=== PATIENT | female | born 1980 | race Caucasian/White ===

== ENCOUNTER 2019-09-15 23:24 | Emergency (ER) | payer SELFPAY ==
[~2019-09-15] VITALS: Ht 165.1 cm; Wt 61.2 kg
[2019-09-15 23:55] LABS: Influenza A Negative (NEGATIVE); Influenza B Positive (NEGATIVE)
[2019-09-16] MEDS ORDERED: Tamiflu75 MG PO (00:51)
[2019-09-17] MEDS ORDERED: ONDA4ODT MM (20:21)
== END 2019-09-16 01:28 | disposition home or self-care (01) ==
LOC: ER 23:24
PROVIDERS: Emergency Medicine
DX: J10.1 Influenza due to other identified influenza virus with other respiratory manifestations (principal)
CPT/HCPCS: 87804; 99283

== ENCOUNTER 2019-09-17 16:55 | Emergency (ER) | payer SELFPAY ==
[~2019-09-17] VITALS: Ht 165.1 cm; Wt 61.2 kg
[~2019-09-17 16:55] MED LIST: Tamiflu75 MG PO
[2019-09-17 18:49] LABS: BASOPHILS PERCENT AUTO 0 % (0-2); EOSINOPHILS PERCENT AUTO 0 % (0-6); Hematocrit 43.2 % (33.0-51.0); Hemoglobin 14.2 g/dL (11.5-16.0); Mean Corpuscular HGB Conc 32.9 g/dL (31.5-36.5); Mean Corpuscular Volume 88 fL (80-100); Mean Platelet Volume 10.8 fL (9.1-12.4); Platelet Count 107 K/mm3 (150-400); RDW Coefficient Variation 12.4 % (11.7-14.2); RDW Standard Deviation 40.3 fL (35.1-46.3); White Blood Cell Count 2.96 K/mm3 (4.00-11.30)
[2019-09-17 18:55] LABS: IMMATURE GRAN ABSOLUTE AUTO 0.01 K/mm3 (0.00-0.10); IMMATURE GRAN PERCENT AUTO 0 % (0-1); LYMPHOCYTES ABSOLUTE AUTO 0.83 K/mm3 (0.84-5.20); LYMPHOCYTES PERCENT AUTO 28 % (21-46); MONOCYTES ABSOLUTE AUTO 0.27 K/mm3 (0.16-1.47); MONOCYTES PERCENT AUTO 9 % (4-13); NEUTROPHILS ABSOLUTE AUTO 1.85 K/mm3 (1.96-9.15); NEUTROPHILS PERCENT AUTO 63 % (41-73)
[2019-09-17 19:15] LABS: Alanine Aminotransfer (ALT/SGP 61 U/L (12-78); Albumin, Blood 3.6 g/dL (3.4-5.0); Alk Phos 57 U/L (50-136); Anion Gap 4 mmol/L (6-16); Aspartate Aminotrans (AST/SGOT 36 U/L (12-37); Bilirubin, Total 0.3 mg/dL (0.1-1.0); Blood Urea Nitrogen 11 mg/dL (8-24); Bun/Creatinine Ratio 18.7 (12.0-20.0); CO2, Blood 29 mmol/L (21-32); Chloride, Blood 106 mmol/L (98-108); Creatinine, Blood 0.59 mg/dL (0.40-1.00); Globulin, Blood 3.7 g/dL (2.2-4.0); Glomerular Filtration Rate >60 (60-); Glucose, Blood 91 mg/dL (70-99); Potassium, Blood 3.2 mmol/L (3.5-5.5); Sodium, Blood 139 mmol/L (136-145); Total Protein, Blood 7.3 g/dL (6.4-8.2)
[2019-09-17] MEDS ORDERED: ONDA4ODT MM (20:21)
== END 2019-09-17 20:29 | disposition home or self-care (01) ==
LOC: ER 16:55
PROVIDERS: Physician Assistant
DX: N92.0 Excessive and frequent menstruation with regular cycle (principal); J10.1 Influenza due to other identified influenza virus with other respiratory manifestations; F17.200 Nicotine dependence, unspecified, uncomplicated
CPT/HCPCS: 36415; 76830; 76856; 80053; 81025; 85025; 99284-25; A9270-GY

== ENCOUNTER → 2022-03-25 | Outpatient (CLI) | payer OTHER ==
[~2022-03-25] MED LIST changes: +HYDR1TAB94 PO; +ONDA4ODT MM
[2022-03-25 14:32] LABS: BASOPHILS ABSOLUTE AUTO 0.04 K/mm3 (0.00-0.23); BASOPHILS PERCENT AUTO 0 % (0-2); EOSINOPHILS ABSOLUTE AUTO 0.03 K/mm3 (0.00-0.68); EOSINOPHILS PERCENT AUTO 0 % (0-6); Hematocrit 36.6 % (33.0-51.0); Hemoglobin 12.7 g/dL (11.5-16.0); IMMATURE GRAN ABSOLUTE AUTO 0.03 K/mm3 (0.00-0.10); IMMATURE GRAN PERCENT AUTO 0 % (0-1); LYMPHOCYTES ABSOLUTE AUTO 1.23 K/mm3 (0.84-5.20); LYMPHOCYTES PERCENT AUTO 11 % (21-46); MONOCYTES ABSOLUTE AUTO 0.68 K/mm3 (0.16-1.47); MONOCYTES PERCENT AUTO 6 % (4-13); Mean Corpuscular HGB 29.1 pg (26.0-34.0); Mean Corpuscular HGB Conc 34.7 g/dL (31.5-36.5); Mean Corpuscular Volume 84 fL (80-100); Mean Platelet Volume 9.7 fL (9.1-12.4); NEUTROPHILS ABSOLUTE AUTO 8.95 K/mm3 (1.96-9.15); NEUTROPHILS PERCENT AUTO 82 % (41-73); Platelet Count 257 K/mm3 (150-400); RDW Coefficient Variation 12.2 % (11.7-14.2); RDW Standard Deviation 37.2 fL (35.1-46.3); Red Blood Cell Count 4.37 M/mm3 (3.80-5.20); White Blood Cell Count 10.96 K/mm3 (4.00-11.30)
[2022-03-25 14:41] LABS: Albumin, Blood 3.5 g/dL (3.4-5.0); Albumin/Globulin Ratio 1.1 (0.8-1.8); Bilirubin, Total 0.5 mg/dL (0.1-1.0); Bun/Creatinine Ratio 18.3 (12.0-20.0); Calcium, Blood 8.3 mg/dL (8.5-10.1); Creatinine, Blood 0.6 mg/dL (0.40-1.00); Globulin, Blood 3.1 g/dL (2.2-4.0); Potassium, Blood 3.8 mmol/L (3.5-5.5); Total Protein, Blood 6.6 g/dL (6.4-8.2)
== END | disposition home or self-care (01) ==
LOC: LAB 14:24 → LAB SHORT 14:24
PROVIDERS: Physician Assistant Surgical
DX: R10.11 Right upper quadrant pain (principal)
CPT/HCPCS: 80053; 83690; 85025

== ENCOUNTER 2022-03-26 09:54 | Observation (INO) | payer OTHER ==
[~2022-03-26] VITALS: Ht 167.6 cm; Wt 67.1 kg
[~2022-03-26 09:54] MED LIST changes: -HYDR1TAB94 PO
[2022-03-26 11:40] LABS: BASOPHILS ABSOLUTE AUTO 0.03 K/mm3 (0.00-0.23); BASOPHILS PERCENT AUTO 0 % (0-2); EOSINOPHILS ABSOLUTE AUTO 0.09 K/mm3 (0.00-0.68); EOSINOPHILS PERCENT AUTO 1 % (0-6); Hematocrit 38.4 % (33.0-51.0); IMMATURE GRAN ABSOLUTE AUTO 0.06 K/mm3 (0.00-0.10); IMMATURE GRAN PERCENT AUTO 0 % (0-1); LYMPHOCYTES ABSOLUTE AUTO 0.84 K/mm3 (0.84-5.20); LYMPHOCYTES PERCENT AUTO 6 % (21-46); MONOCYTES ABSOLUTE AUTO 1.11 K/mm3 (0.16-1.47); MONOCYTES PERCENT AUTO 8 % (4-13); Mean Corpuscular HGB 28.7 pg (26.0-34.0); Mean Corpuscular HGB Conc 33.9 g/dL (31.5-36.5); Mean Corpuscular Volume 85 fL (80-100); Mean Platelet Volume 9.9 fL (9.1-12.4); NEUTROPHILS ABSOLUTE AUTO 11.72 K/mm3 (1.96-9.15); NEUTROPHILS PERCENT AUTO 85 % (41-73); Platelet Count 210 K/mm3 (150-400); RDW Coefficient Variation 12.4 % (11.7-14.2); RDW Standard Deviation 38.2 fL (35.1-46.3); Red Blood Cell Count 4.53 M/mm3 (3.80-5.20); White Blood Cell Count 13.85 K/mm3 (4.00-11.30)
[2022-03-26 12:16] LABS: Albumin, Blood 3.2 g/dL (3.4-5.0); Bilirubin, Total 1.4 mg/dL (0.1-1.0); Bun/Creatinine Ratio 11.3 (12.0-20.0); Calcium, Blood 8.8 mg/dL (8.5-10.1); Creatinine, Blood 0.62 mg/dL (0.40-1.00); Globulin, Blood 3.3 g/dL (2.2-4.0); Potassium, Blood 4.2 mmol/L (3.5-5.5); Total Protein, Blood 6.5 g/dL (6.4-8.2)
[2022-03-26 15:05] LABS: Source, Urine Clean Catch
[2022-03-26 15:13] LABS: Appearance, Urine Hazy (Clear); Bilirubin, Urine Neg (Neg); Blood, Urine Neg (Neg); Color, Urine Yellow (P-Yellow); Glucose Qualitative, Urine Neg (Neg); Ketones, Urine Neg (Neg); Leukocyte Esterase, Urine 1+ (Neg); Nitrite, Urine Neg (Neg); Protein, Urine 1+ (Neg); Urobilinogen, Urine 2+ (Normal)
[2022-03-26 15:22] LABS: Bacteria Many /hpf; Red Blood Cells, Urine 0-2 /hpf (0-2); Squamous Epithelial Cells Mod /hpf (Few)
--- NOTE | 2022-03-26 18:01 | NUR ---
ADMISSION: REPORT RECIEVED FROM [employer], PT TO UNIT AT ABOUT 1720. PT VOIDED, UP INDEPENDENTLY. PT IS A/O, ABD IS PAINFUL, MEDICATED PER EMAR. ADMISSION HX COMPLETE. PLAN FOR NPO AT 0000 AND SURGERY TOMORROW. WILL PASS REPORT TO NOC RN.
--- NOTE | 2022-03-27 04:33 | NUR ---
SHIFT SUMMARY A/O X4- IND IN THE ROOM. PLAN FOR SURGERY THIS AM. PT REPORTS PAIN MANAGED W/ IV PAIN MEDICATION Q2H. NPO SINCE MIDNIGHT. IV REPLACED, FLUIDS RUNNING. IV ANTIBIOTICS GIVEN. VITAL SIGNS STABLE. WILL CONTINUE TO MONITOR AND REPORT TO ONCOMING RN.
--- NOTE | 2022-03-27 09:36 | NUR ---
03/27/22 0936 Luann Castillo NO PREOP ANTIBIOTICS ORDERED PER PATIENT IS ON SCHEDULED ANTIBIOTICS.
--- NOTE | 2022-03-27 12:40 | NUR ---
PT ARRIVED BACK FROM PACU AT APPROXIMATELY 1230. PT IS DROWSY BUT AWAKENS TO SAY SHE DOESNT FEEL GOOD. SHE REPORTS PAIN BUT IS DROWSY. WILL CONTINUE TO MONITOR.
--- NOTE | 2022-03-27 17:04 | NUR ---
SHIFT SUMMARY PT IS POD#0 FROM [facility] WITH DR. MARCELO. PT HAS RESTED POST-OP. PAIN MANAGED WITH NORCO. PT TOLERATED CLEAR LIQUIDS AND CRACKERS. PLAN FOR A REGULAR TRAY FOR DINNER. PT HAS BEEN ABLE TO AMBULATE INDEPENDENTLY TO THE BATHROOM POST-OP. PT IS IMPULSIVE BUT IS STABLE ON HER FEET.
--- NOTE | 2022-03-28 06:22 | NUR ---
SHIFT SUMMARY PT POD 0 LAP APURVA, SHE HAS DONE WELL OVERNIGHT, PAIN IS MUCH IMPROVED. MEDICATED X2 FOR PAIN WITH AFFECT. LAP SITES C/D/I. PT HAS AMBULATED IN HALLWAY THIS SHIFT AND IS VOIDING. TOLERATING PO INTAKE. INDEPENDENT IN THE ROOM. POSSIBLE DC TODAY. BED IN LOWEST POSITION, CALL LIGHT WITHIN REACH.
[2022-03-28] MEDS ORDERED: HYDR1TAB94 PO (11:54)
--- NOTE | 2022-03-28 14:29 | NUR ---
IVs REMOVED PRIOR TO DISCHARGE 20G IV REMOVED FROM L UPPER ARM, IV AND CATHETER INTACT AT TIME OF REMOVAL. SITE WNL. IV REMOVED FROM L WRIST PRIOR TO DISCHARGE, SEE VASCULAR ACCESS DOCUMENTATION.
--- NOTE | 2022-03-28 14:31 | NUR ---
DISCHARGE PT WAS PROVIDED WITH WRITTEN AND VERBAL DISCHARGE INSTRUCTIONS, SHE REPORTED UNDERSTANDING. PRIOR TO DISCHARGE PT WAS ABLE TO AMBULATE, VOID, TOLERATE PO, PASS FLATUS AND HAVE A BM, PAIN MANAGED ON ORAL PAIN MEDICATION. PRESCRIPTION PROVIDED FOR PAIN MEDICATION, PT EDUCATED TO FILL THE PRESCRIPTION AT HER PHARMACY. PT ASSISTED OUT IN A W/C FOR COMFORT.
== END 2022-03-28 13:05 | disposition home or self-care (01) ==
LOC: ER 09:54 → ERHOLD 09:55 → SURS 09:55 → ER 09:55 → SURS 09:58 → ERHOLD 17:11 → SURS 03-27 13:43
PROVIDERS: Physician Assistant; ADMIT Surgery
PROC: 0FT44ZZ Resection of Gallbladder, Percutaneous Endoscopic Approach (ICD-10-PCS; principal; 2022-03-27 09:00)
PROC: BF12YZZ Fluoroscopy of Gallbladder using Other Contrast (ICD-10-PCS; principal; 2022-03-27 09:00)
DX: K80.00 Calculus of gallbladder with acute cholecystitis without obstruction (principal); F17.210 Nicotine dependence, cigarettes, uncomplicated; Z88.0 Allergy status to penicillin
CPT/HCPCS: 36415; 74300; 80053; 81001; 85025; 87086; 88304; 96365; 96372; 96375; 96376; 99284-25; A9270; C1729; G0378; J0694; J1100; J1170; J1650; J1885; J2250; J2405; J2704; J2710; J2765; J3010; J7120

== ENCOUNTER → 2023-02-07 | Outpatient (CLI) | payer OTHER ==
[~2023-02-07] MED LIST changes: +HYDR1TAB94 PO
[2023-02-07 18:10] LABS: BASOPHILS ABSOLUTE AUTO 0.03 K/mm3 (0.00-0.23); BASOPHILS PERCENT AUTO 1 % (0-2); EOSINOPHILS ABSOLUTE AUTO 0.07 K/mm3 (0.00-0.68); EOSINOPHILS PERCENT AUTO 2 % (0-6); Hemoglobin 13.3 g/dL (11.5-16.0); IMMATURE GRAN PERCENT AUTO 0 % (0-1); LYMPHOCYTES PERCENT AUTO 32 % (21-46); MONOCYTES PERCENT AUTO 12 % (4-13); Mean Corpuscular HGB 29.2 pg (26.0-34.0); Mean Corpuscular HGB Conc 33.3 g/dL (31.5-36.5); Mean Corpuscular Volume 88 fL (80-100); Mean Platelet Volume 9.2 fL (9.1-12.4); NEUTROPHILS ABSOLUTE AUTO 1.85 K/mm3 (1.96-9.15); NEUTROPHILS PERCENT AUTO 54 % (41-73); Platelet Count 204 K/mm3 (150-400); RDW Coefficient Variation 12.7 % (11.7-14.2); Red Blood Cell Count 4.55 M/mm3 (3.80-5.20); White Blood Cell Count 3.45 K/mm3 (4.00-11.30)
[2023-02-07 18:20] LABS: Albumin, Blood 3.4 g/dL (3.4-5.0); Bilirubin, Total 0.3 mg/dL (0.1-1.0); Bun/Creatinine Ratio 12.1 (12.0-20.0); Calcium, Blood 8.8 mg/dL (8.5-10.1); Creatinine, Blood 0.66 mg/dL (0.40-1.00); Globulin, Blood 3.4 g/dL (2.2-4.0); Potassium, Blood 3.9 mmol/L (3.5-5.5); Total Protein, Blood 6.8 g/dL (6.4-8.2)
== END ==
LOC: LAB SHORT 18:04 → LAB 18:04
PROVIDERS: Family Medicine
DX: R60.0 Localized edema (principal)
CPT/HCPCS: 80053; 85025

== ENCOUNTER → 2023-06-15 | Outpatient (CLI) | payer OTHER ==
[~2023-06-15] MED LIST changes: +Triamcinolone A15 GM TOP
== END ==
LOC: LAB SHORT 17:47 → LAB 17:47
DX: R22.41 Localized swelling, mass and lump, right lower limb (principal)
CPT/HCPCS: 85379

== ENCOUNTER 2024-12-20 04:51 | Emergency (ER) | payer OTHER ==
[~2024-12-20] VITALS: Ht 165.1 cm; Wt 63.5 kg
[2024-12-20 05:55] LABS: Albumin, Blood 3.4 g/dL (3.4-5.0); Albumin/Globulin Ratio 0.9 (0.8-1.8); Bilirubin, Total 0.3 mg/dL (0.1-1.0); Calcium, Blood 8.5 mg/dL (8.5-10.1); Creatinine, Blood 0.58 mg/dL (0.40-1.00); Globulin, Blood 3.6 g/dL (2.2-4.0); Potassium, Blood 3.9 mmol/L (3.5-5.5)
[2024-12-20 06:09] LABS: BASOPHILS ABSOLUTE AUTO 0.02 K/mm3 (0.00-0.23); BASOPHILS PERCENT AUTO 0 % (0-2); EOSINOPHILS ABSOLUTE AUTO 0.15 K/mm3 (0.00-0.68); EOSINOPHILS PERCENT AUTO 2 % (0-6); Hematocrit 35.6 % (33.0-51.0); Hemoglobin 11.6 g/dL (11.5-16.0); IMMATURE GRAN ABSOLUTE AUTO 0.02 K/mm3 (0.00-0.10); IMMATURE GRAN PERCENT AUTO 0 % (0-1); LYMPHOCYTES ABSOLUTE AUTO 1.18 K/mm3 (0.84-5.20); LYMPHOCYTES PERCENT AUTO 18 % (21-46); MONOCYTES ABSOLUTE AUTO 0.69 K/mm3 (0.16-1.47); MONOCYTES PERCENT AUTO 11 % (4-13); Mean Corpuscular HGB 28.4 pg (26.0-34.0); Mean Corpuscular HGB Conc 32.6 g/dL (31.5-36.5); Mean Corpuscular Volume 87 fL (80-100); Mean Platelet Volume 8.8 fL (9.1-12.4); NEUTROPHILS ABSOLUTE AUTO 4.41 K/mm3 (1.96-9.15); NEUTROPHILS PERCENT AUTO 68 % (41-73); Platelet Count 186 K/mm3 (150-400); RDW Coefficient Variation 13.1 % (11.7-14.2); RDW Standard Deviation 41.4 fL (35.1-46.3); Red Blood Cell Count 4.09 M/mm3 (3.80-5.20); White Blood Cell Count 6.47 K/mm3 (4.00-11.30)
[2024-12-20] MEDS ORDERED: LIDO700A20 TOP (06:19)
[2024-12-20] MEDS ORDERED: Lidocaine 4% 1 Patch TOP ONE (06:20)
[2024-12-20] MEDS ORDERED: Ketorolac Tromethamine 30mg Vial IV ONE (06:20)
[2024-12-20 06:30] VITALS: BP 126/74
== END 2024-12-20 06:35 | disposition home or self-care (01) ==
LOC: ER 04:51
PROVIDERS: Emergency Medicine
DX: M43.6 Torticollis (principal); Z87.891 Personal history of nicotine dependence
CPT/HCPCS: 70491; 80053; 85025; 96374-59; 99284-25; A9270; J1885; Q9967